=== PATIENT | male | born 1990 | race Caucasian/White ===

== ENCOUNTER 2022-01-27 05:33 | Emergency (ER) | payer OTHER ==
[2022-01-27 06:10] LABS: BASOPHIL 0.7 % (0-2); EOSINOPHIL 0.9 % (0-5); HCT 41.7 % (42.0-52.0); HGB 14.2 g/dl (13.2-18.0); LYMPHOCYTE 14.1 % (15-48); MCH 28.9 pg (25.0-31.0); MCHC 34.1 g/dL (32.0-36.0); MCV 84.8 fL (78.0-100.0); MPV 10.6 fL (6.0-9.5); NEUTROPHIL 70.7 % (41-80); NRBC 0; PLT 174 K/uL (150-400); RBC 4.92 M/uL (4.70-6.00); RDW 12.5 % (11.5-14.0); WBC 6.7 K/uL (4.0-10.5)
[2022-01-27 06:31] LABS: BUN/CREAT RATIO (CALC) 12.5 RATIO; CREATININE 1.04 mg/dL (0.67-1.17); POTASSIUM 3.7 mmol/L (3.5-5.1)
[2022-01-27 06:43] LABS: INFLUENZA A NAA NEGATIVE (NEGATIVE)
[2022-01-27 06:46] LABS: CORONAVIRUS 2019 SARS-COV-2 POSITIVE (NEGATIVE)
== END 2022-01-27 06:56 | disposition home or self-care (01) ==
LOC: FER 05:33
PROVIDERS: Internal Medicine
DX: U07.1 COVID-19 (principal); J12.82 Pneumonia due to coronavirus disease 2019; F17.290 Nicotine dependence, other tobacco product, uncomplicated
CPT/HCPCS: 36415; 71045; 80048; 84145; 85025; U0002